=== PATIENT | female | born 1960 | race Caucasian/White ===

== ENCOUNTER 2020-12-09 20:44 | Emergency (ER) | payer OTHER ==
[~2020-12-09] VITALS: Ht 165.1 cm; Wt 104.0 kg
[2020-12-09] MEDS ORDERED: ATENOLOL25 MG PO (21:13)
[2020-12-09] MEDS ORDERED: POTASSIUM CHLO10 ME1 PO (21:14)
[2020-12-09] MEDS ORDERED: ST. JOSEPH ASPI81 MG PO (21:14)
== END 2020-12-09 21:48 | disposition home or self-care (01) ==
LOC: ED 20:44
DX: T16.1XXA Foreign body in right ear, initial encounter (principal); I10 Essential (primary) hypertension; Z88.5 Allergy status to narcotic agent; Z79.899 Other long term (current) drug therapy; Z79.82 Long term (current) use of aspirin
CPT/HCPCS: 99282